=== PATIENT | female | born 1990 | race Caucasian/White ===

== ENCOUNTER 2025-04-14 11:00 | Emergency (ER) | payer BC, SELFPAY ==
--- NOTE | ~2025-04-14 | XR_ITS ---
Right Hand Technique: PA, oblique, and lateral views were obtained. Clinical History: Pain Findings: No acute fracture or dislocation is seen. Osseous alignment is anatomic. Joint spaces are p reserved. Soft tissues are unremarkable. Impression: Unremarkable right hand. Reviewed, dictated and finalized at location M. Impression: Unremarkable right hand.
[2025-04-14 11:10] VITALS: BP 164/96; PULSE 81; RESP 16; TEMP 36.7; O2SAT 100
--- NOTE | 2025-04-14 11:50 | ED.UPPEXIN ---
HPI - Extremity Injury (Upper) General Chief Complaint: Extremity Injury, Upper Stated Complaint: Bruised Right Hand Patient presents to the [facility] accompanied by friend with complaints of pain and bruising to top of right hand that began 3 days ago after punching a wall. Patient reports she is angry and heading to the punching bag. Noted good mobility but having some tenderness with touching the top of her hand. 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 Denies numbness or tingling in hands or fingers. Related Data Home Medications ?Medication ?Instructions ?Recorded ?Confirmed ?Last Taken ?Type omeprazole 20 mg delayed 20 mg PO DAILY 04/14/25 04/14/25 Unknown History release,disintegrating tablet Allergies Allergy/AdvReac Type Severity Reaction Status Date / Time No Known Allergies Allergy Verified 04/14/25 11:30 Review of Systems Constitutional: Constitutional: Reports no additional constitutional complaints Eyes: Eyes: Reports no additional eye complaints Cardiovascular: Cardiovascular: Reports no additional cardiovascular complaints Respiratory: Respiratory: Reports no additional respiratory complaints Gastrointestinal: Gastrointestinal: Reports no additional gastrointestinal complaints Genitourinary: Genitourinary: Reports no additional female genitourinary complaints Musculoskeletal: Musculoskeletal: Reports as per HPI, Reports arthralgias, Reports joint swelling and Denies muscle cramps Integumentary/Breasts: Skin/Breast: Reports as per HPI, Denies erythema and Denies rash Comments: Bruising top of right hand Neurologic: Reports as per HPI, Denies numbness and Denies weakness Psychiatric: Psychiatric: Reports no additional psychiatric complaints Endocrine: Endocrine: Reports no additional endocrine complaints Hematologic/Lymphatic: Hematologic/Lymphatic: Reports no additional hematologic/lymphatic complaints Allergic/Immunologic: Allergic/Immunologic: Reports no additional allergic/immunologic complaints Exam Const: General: healthy appearing and no acute distress Nutritional Appearance: well nourished Orientation/consciousness: patient oriented x3 Limitations: no limitations Resp: Effort & Inspection: normal respiratory effort Cardio: Rate: regular rate Rhythm: regular rhythm Heart sounds: no murmurs Skin: Rashes: no rashes Wounds: no wounds Other: bruising dorsum right hand Neuro: General: patient oriented x3 Cranial nerves: Yes Nystagmus not present Speech: normal speech Gait exam (Neuro): Normal gait present Extrem: Right upper extremity: Extremity exam: right hand abnormal to inspection, normal capillary refill, neuromotor exam normal, neurosensory exam normal, tendon exam normal, tenderness of the dorsal hand, normal ROM of fingers, swelling of the dorsal hand and ecchymosis of the dorsal hand; ROM of fingers normal and no unusual warmth Psych: Mental Status: mental status grossly normal Affect: normal affect Attitude: cooperative Course Course Level of Care: Express Care Visit Vital Signs Vital signs: Vital Signs Temperature 98.1 F 04/14/25 11:10 Pulse Rate 81 04/14/25 11:10 Respiratory Rate 16 04/14/25 11:10 Blood Pressure 164/96 H 04/14/25 11:10 Pulse Oximetry 100 04/14/25 11:10 Temperature 98.1 F 04/14/25 11:10 Pulse Rate 81 04/14/25 11:10 Respiratory Rate 16 04/14/25 11:10 Blood Pressure 164/96 H 04/14/25 11:10 Pulse Oximetry 100 04/14/25 11:10 MDM - Extremity Injury (Upper) MDM Narrative Medical decision making narrative: x-ray right hand ordered Discharge instructions reviewed with patient, as well as provided in writing per nursing staff. The instructions also include specific and strict return/GO TO THE ER as well as f/u information. All questions have been answered, and the patient deny any further questions with discharge and discharge plan. Differential Diagnosis Differential diagnosis: Likely fracture of wrist, finger sprain, dislocation of finger and fracture of hand Medical Records Attestation: I reviewed the patient's medical records. Imaging Data Attestation: I personally reviewed and interpreted this imaging study as follows: My impression: No fracture noted Radiologist's impression: Impression: Unremarkable right hand. Reviewed, dictated and finalized at location . Discharge Plan Discharge Clinical Impression: Contusion of dorsum of right hand Patient Disposition: Home Condition: Stable Instructions: Antibiotic Form, Contusion in Adults (ED) Additional Instructions: no fracture noted on x-ray. Continue gentle range of motion. Ice, Tylenol, ibuprofen as needed. Patient Language: [place] Prescriptions: No Action omeprazole 20 mg tablet,disintegrat, delay rel 20 mg PO DAILY Follow-up/Referrals: PHYSICIAN,HAND OR MACHINE PASTER [Primary Care Provider] - Time of Disposition: 12:10
== END 2025-04-14 12:13 | disposition home or self-care (01) ==
PROVIDERS: Emergency Provider Nurse Practitioner Family
DX: S60.221A Contusion of right hand, initial encounter (principal); W22.09XA Striking against other stationary object, initial encounter
CPT/HCPCS: 73130; 99203; G0463